=== PATIENT | male | born 1990 | race Hispanic/Latino ===

== ENCOUNTER 2020-05-19 10:38 | Emergency (ER) | payer OTHER ==
[~2020-05-19] VITALS: Ht 182.9 cm; Wt 133.8 kg
[2020-05-19] MEDS ORDERED: BACTRIM DS TAB1 EACH PO (10:59)
[2020-05-19] MEDS ORDERED: VALTREX1000 MG PO (12:37)
[2020-05-19] MEDS ORDERED: LOTRIMIN AF12 GM TOP (12:37)
== END 2020-05-19 12:46 | disposition home or self-care (01) ==
LOC: ED 10:38
DX: B02.9 Zoster without complications (principal); Z79.899 Other long term (current) drug therapy
CPT/HCPCS: 99283